=== PATIENT | female | born 1965 | race African-American/Black ===

== ENCOUNTER 2023-01-24 08:08 | Emergency (ER) | payer MEDICAID ==
[~2023-01-24] VITALS: Ht 167.6 cm; Wt 90.0 kg
[~2023-01-24 08:08] MED LIST: DIVA125T2 PO; KEPPRA; PHEN-434 PO
[2023-01-24 08:13] VITALS: O2SAT 98
[2023-01-24] MEDS ORDERED: LORAZEPAM 2MG/ML CPJ IV ONE (09:15)
[2023-01-24 10:50] LABS: HEMATOCRIT. 40.5 % (36.0-48.0); MEAN CORPUSCULAR VOLUME 84.3 fL (81.0-99.0); MEAN PLATELET VOLUME 8.4 fl (7.4-10.4); PLATELET 189 x1000/uL (130-400); RED BLOOD CELL COUNT 4.81 mill/uL (4.2-5.4); RED CELL DISTRIBUTION WIDTH 15.6 % (11.6-14.6); WHITE BLOOD COUNT 14.2 x1000/uL (4.5-11.0)
[2023-01-24 11:00] LABS: DIFFERENTIAL COMMENT 1
[2023-01-24 11:02] LABS: CHLORIDE 106 mEq/L (98-107); INDEX HEMOLYSI 1 (1-3); INDEX ICTERIC 1 (1-4); INDEX LIPEMIC 1 (1-3); POTASSIUM 3.6 mEq/L (3.5-5.1); SODIUM 141 mEq/L (136-145)
[2023-01-24 11:10] LABS: ALANINE AMINOTRANSFERASE 28 IU/L (13-61); ALBUMIN 3.6 g/dL (3.4-5.0); ASPARTATE AMINOTRANSFERASE 21 IU/L (15-37); BILIRUBIN TOTAL 0.6 mg/dL (0.1-1.0); CALCIUM 8.6 mg/dL (8.5-10.1); CARBON DIOXIDE 31 mEq/L (21-32); CREATININE 0.7 mg/dL (0.6-1.3); ETHANOL BLOOD < 10 mg/dL (<10); GLUCOSE 115 mg/dL (70-105); UREA NITROGEN BLOOD 15 mg/dL (7-21)
[2023-01-24] MEDS ORDERED: VALPROATE SODIUM 500 MG in SODIUM CHLORIDE 0.9% 100 ML IV SCH (11:15)
[2023-01-24 11:46] LABS: PLATELET ESTIMATE NORMAL
[2023-01-24] MEDS ORDERED: PHENYTOIN SODIUM 100MG/2ML VIAL IV ONE (12:30)
[2023-01-24] MEDS ORDERED: LEVETIRACETAM 500MG PREMIX 100 ML IV ONE (12:45)
[2023-01-24] MEDS ORDERED: DIVALPROEX SODIUM 500MG DR TABLET PO ONE (13:30)
[2023-01-24] MEDS ORDERED: PHENYTOIN SODIUM EXTENDED 100MG CAPSULE PO ONE (13:30)
[2023-01-24 13:31] VITALS: BP 114/58; PULSE 97; RESP 15; TEMP 97.1
== END 2023-01-24 16:00 | disposition home or self-care (01) ==
LOC: ER 08:22
DX: R56.9 Unspecified convulsions (principal); Z88.8 Allergy status to other drugs, medicaments and biological substances
CPT/HCPCS: 80053; 80320; 80185; 80165; 85025; 36415; 96374; 99283; J2060; J3490; J7050; C1893; Z7610; G0480